=== PATIENT | male | born 1985 | race Caucasian/White ===

== ENCOUNTER 2020-01-28 07:04 | Emergency (ER) | payer MEDICAID ==
--- NOTE | 2020-01-28 07:19 | EDM.PDOC ---
ED HPI GENERAL MEDICAL PROBLEM - General Chief Complaint: Abdominal Pain Stated Complaint: ABDOMINAL PAIN/BLOOD IN URINE/ Time Seen by Provider: 01/28/20 07:19 Source of Information: Reports: Patient History Limitations: Reports: No Limitations - History of Present Illness INITIAL COMMENTS - FREE TEXT/NARRATIVE: 34-year-old male presents to the ED for evaluation after accidentally taking a drink of polar windshield washer fluid by mouth 9 days ago while he was drinking alcohol. He states he never had any problem with vomiting. He was been able to eat normally since that time. He states he has diffuse abdominal pain and noted blood in his urine. Associated dysuria urgency and frequency. No diarrhea. No problems with visual acuity. Not feeling ill at this point time but very concerned that he may have poisoned himself. 1 swig of this fluid which should not have caused any significant abnormalities this long as it was diluted right away. He did phone poison control on Monday and was given that information. Methanol would have caused significant problems with visual acuity and potentially blindness. It can cause some problems of the kidneys and liver and therefore labs will be done today. Cannot account for the dysuria urgency and frequency from this. Nor blood in the urine. Onset: Sudden Onset Date: 01/24/20 Duration: Day(s):, Other (Continue dysuria urgency and frequency which he is worried about is caused by drinking Polar deicer windshield washer fluid accidentally 5 days ago.) Location: Reports: Abdomen Quality: Reports: Other Severity: Moderate (Sleep dysuria urgency frequency with blood noted in his urine.) Improves with: Reports: None Worsens with: Reports: None Context: Denies: Activity, Exercise, Lifting, Sick Contact, Trauma, Other Associated Symptoms: Denies: No Other Symptoms, Confusion, Chest Pain, Cough, cough w sputum, Diaphoresis, Fever/Chills, Headaches, Loss of Appetite, Malaise, Nausea/Vomiting, Rash, Seizure, Shortness of Breath, Syncope, Weakness Treatments B[employer] AND [employer]LL[employer] MACHINE: Reports: Other (see below) (None.) Bilateral Lower Abdomen Pain Score (Numeric/FACES): 3 - Related Data Allergies Allergy/AdvReac Type Severity Reaction Status Date / Time No Known Allergies Allergy Verified 01/28/20 07:17 Home Meds: Home Meds Triamcinolone Acetonide [Triamcinolone Acetonide 0.5% Oint] 30 gm .XX ASDIRECTED #1 tube 01/28/20 [Rx] polyethylene glycoL 3350 [MiraLAX] 17 gm PO DAILY #1 packet 01/28/20 [Rx] Past Medical History Cardiovascular History: Reports: None Respiratory History: Reports: None Gastrointestinal History: Reports: None Genitourinary History: Reports: None Musculoskeletal History: Reports: None Neurological History: Reports: None Psychiatric History: Reports: None Endocrine/Metabolic History: Reports: None Hematologic History: Reports: None Immunologic History: Reports: None Oncologic (Cancer) History: Reports: None Dermatologic History: Reports: Psoriasis - Infectious Disease History Infectious Disease History: Reports: None - Past Surgical History HEENT Surgical History: Reports: Oral Surgery Social & Family History - Tobacco Use Smoking Status *Q: Current Every Day Smoker Years of Tobacco use: 20 Packs/Tins Daily: 0.7 - Caffeine Use Caffeine Use: Reports: Coffee, Energy Drinks, Soda, Tea - Recreational Drug Use Recreational Drug Use: Yes Recreational Drug Type: Reports: Marijuana/Hashish, Methamphetamine - Living Situation & Occupation Living situation: Reports: Single Occupation: Employed ED ROS GENERAL - Review of Systems Review Of Systems: See Below Constitutional: Denies: Fever, Chills, Malaise, Weakness, Fatigue, Decreased Appetite, Weight Loss HEENT: Reports: No Symptoms Respiratory: Reports: No Symptoms Cardiovascular: Reports: No Symptoms Endocrine: Reports: No Symptoms GI/Abdominal: Reports: Abdominal Pain. Denies: Constipation, Diarrhea, Decreased Appetite, Difficulty Swallowing, Distension, Flatus, Hematemesis, Hematochezia, Melena, Mucous in Stool, Nausea, Stool Incontinence, Vomiting : Reports: Dysuria, Frequency, Urgency, Other (Has appreciated hematuria as well.) Musculoskeletal: Denies: Back Pain Skin: Reports: No Symptoms Neurological: Reports: No Symptoms Psychiatric: Reports: No Symptoms Hematologic/Lymphatic: Reports: No Symptoms Immunologic: Reports: No Symptoms ED EXAM, GI/ABD - Physical Exam Exam: See Below Exam Limited By: No Limitations General Appearance: Alert, WD/WN, Anxious Eyes: Bilateral: Normal Appearance Throat/Mouth: Normal Inspection, Normal Lips, Normal Oropharynx, Other Head: Atraumatic, Normocephalic Neck: Normal Inspection (Lung is mildly dry and coated), Supple, Non-Tender, Full Range of Motion. No: Lymphadenopathy (L), Lymphadenopathy (R) Respiratory/Chest: No Respiratory Distress, Lungs Clear, Normal Breath Sounds, No Accessory Muscle Use Cardiovascular: Normal Peripheral Pulses, Regular Rate, Rhythm, No Edema, No Murmur, No Rub GI/Abdominal Exam: Normal Bowel Sounds, Soft, Non-Tender, No Organomegaly, No Abnormal Bruit, No Mass, Pelvis Stable Back Exam: Normal Inspection, Full Range of Motion Extremities: Normal Inspection, Normal Range of Motion, Non-Tender, No Pedal Edema Neurological: Alert, Oriented, CN II-XII Intact, Normal Cognition, No Motor/Sensory Deficits Psychiatric: Anxious Skin Exam: Warm, Dry, Intact, Normal Color, No Rash Course - Vital Signs Last Recorded V/S: Last Vital Signs Temp 36.5 C 01/28/20 07:12 Pulse 79 01/28/20 08:45 Resp 16 01/28/20 07:12 BP 136/61 01/28/20 08:45 Pulse Ox 100 01/28/20 08:45 - Orders/Labs/Meds Labs: Laboratory Tests 01/28/20 01/28/20 01/28/20 Range/Units 07:28 07:28 07:28 WBC (4.23-9.07) K/mm3 RBC (4.63-6.08) M/mm3 Hgb (13.7-17.5) gm/dl Hct (40.1-51.0) % MCV (79.0-92.2) fl MCH (25.7-32.2) pg MCHC (32.2-35.5) g/dl RDW Std Deviation (35.1-43.9) fL Plt Count (163-337) K/mm3 MPV (9.4-12.3) fl Neut % (Auto) (34.0-67.9) % Lymph % (Auto) (21.8-53.1) % [place] % (Auto) (5.3-12.2) % Eos % (Auto) (0.8-7.0) Baso % (Auto) (0.1-1.2) % Neut # (Auto) (1.78-5.38) K/mm3 Lymph # (Auto) (1.32-3.57) K/mm3 [place] # (Auto) (0.30-0.82) K/mm3 Eos # (Auto) (0.04-0.54) K/mm3 Baso # (Auto) (0.01-0.08) K/mm3 PT (9.7-12.0) SECONDS INR APTT (22-31) SECONDS Sodium (136-145) mEq/L Potassium (3.5-5.1) mEq/L Chloride (98-107) mEq/L Carbon Dioxide (21-32) mEq/L Anion Gap (5-15) BUN (7-18) mg/dL Creatinine (0.7-1.3) mg/dL Est Cr Clr Drug Dosing mL/min Estimated GFR (MDRD) (>60) mL/min BUN/Creatinine Ratio (14-18) Glucose (74-106) mg/dL Calcium (8.5-10.1) mg/dL Total Bilirubin (0.2-1.0) mg/dL AST (15-37) U/L ALT (16-63) U/L Alkaline Phosphatase (46-116) U/L Total Protein (6.4-8.2) g/dl Albumin (3.4-5.0) g/dl Globulin gm/dL Albumin/Globulin Ratio (1-2) Urine Color Yellow (Yellow) Urine Appearance Cloudy H (Clear) Urine pH 7.5 (5.0-8.0) Ur Specific Roslyn 1.025 (1.005-1.030) Urine Protein 2+ H (Negative) Urine Glucose (UA) Negative (Negative) Urine Ketones Negative (Negative) Urine Occult Blood 2+ H (Negative) Urine Nitrite Negative (Negative) Urine Bilirubin 1+ H (Negative) Urine Urobilinogen 4.0 H (0.2-1.0) Ur Leukocyte Esterase Negative (Negative) Urine RBC Not seen (0-5) /hpf Urine WBC 0-5 (0-5) /hpf Ur Squamous Epith Cells 0-5 (0-5) /hpf Urine Bacteria Not seen (FEW) /hpf Urine Mucus Not seen (FEW) /hpf Urine Opiates Screen Negative (RUCVDC=234) Ur Buprenorphine Scrn Negative (CUTOFF=10) Ur Oxycodone Screen Negative (CBU1IJ=842) Urine Methadone Screen Negative (RZA1JE=820) Ur Propoxyphene Screen Negative (TORPUM=598) Ur Barbiturates Screen Negative (AFQBRZ=127) Ur Tricyclics Screen Negative (CLJTPA=283) Ur Phencyclidine Scrn Negative (CUTOFF=25) Ur Amphetamine Screen Presumptive positive H (ZUWNKA=343) U Methamphetamines Scrn Negative (QRRECA=607) U Benzodiazepines Scrn Negative (YXYEDZ=602) U Cocaine Metab Screen Negative (LQSRZG=150) U Marijuana (THC) Screen Negative (CUTOFF=50) Hepatitis C Antibody (NEGATIVE) C trachomatis DNA (PCR) Not detected N gonorrhoeae DNA (PCR) Not detected 01/28/20 01/28/20 01/28/20 Range/Units 07:43 07:43 07:43 WBC 8.01 (4.23-9.07) K/mm3 RBC 5.22 (4.63-6.08) M/mm3 Hgb 15.6 (13.7-17.5) gm/dl Hct 48.0 (40.1-51.0) % MCV 92.0 (79.0-92.2) fl MCH 29.9 (25.7-32.2) pg MCHC 32.5 (32.2-35.5) g/dl RDW Std Deviation 41.9 (35.1-43.9) fL Plt Count 291 (163-337) K/mm3 MPV 10.0 (9.4-12.3) fl Neut % (Auto) 74.5 H (34.0-67.9) % Lymph % (Auto) 15.5 L (21.8-53.1) % [place] % (Auto) 8.5 (5.3-12.2) % Eos % (Auto) 1.1 (0.8-7.0) Baso % (Auto) 0.2 (0.1-1.2) % Neut # (Auto) 5.96 H (1.78-5.38) K/mm3 Lymph # (Auto) 1.24 L (1.32-3.57) K/mm3 [place] # (Auto) 0.68 (0.30-0.82) K/mm3 Eos # (Auto) 0.09 (0.04-0.54) K/mm3 Baso # (Auto) 0.02 (0.01-0.08) K/mm3 PT 11.4 (9.7-12.0) SECONDS INR 1.05 APTT 30 (22-31) SECONDS Sodium 141 (136-145) mEq/L Potassium 3.8 (3.5-5.1) mEq/L Chloride 105 (98-107) mEq/L Carbon Dioxide 28 (21-32) mEq/L Anion Gap 11.8 (5-15) BUN 16 (7-18) mg/dL Creatinine 1.3 (0.7-1.3) mg/dL Est Cr Clr Drug Dosing 82.19 mL/min Estimated GFR (MDRD) > 60 (>60) mL/min BUN/Creatinine Ratio 12.3 L (14-18) Glucose 97 (74-106) mg/dL Calcium 8.6 (8.5-10.1) mg/dL Total Bilirubin 0.4 (0.2-1.0) mg/dL AST 28 (15-37) U/L ALT 88 H (16-63) U/L Alkaline Phosphatase 74 (46-116) U/L Total Protein 6.9 (6.4-8.2) g/dl Albumin 3.6 (3.4-5.0) g/dl Globulin 3.3 gm/dL Albumin/Globulin Ratio 1.1 (1-2) Urine Color (Yellow) Urine Appearance (Clear) Urine pH (5.0-8.0) Ur Specific Roslyn (1.005-1.030) Urine Protein (Negative) Urine Glucose (UA) (Negative) Urine Ketones (Negative) Urine Occult Blood (Negative) Urine Nitrite (Negative) Urine Bilirubin (Negative) Urine Urobilinogen (0.2-1.0) Ur Leukocyte Esterase (Negative) Urine RBC (0-5) /hpf Urine WBC (0-5) /hpf Ur Squamous Epith Cells (0-5) /hpf Urine Bacteria (FEW) /hpf Urine Mucus (FEW) /hpf Urine Opiates Screen (IAZPIS=723) Ur Buprenorphine Scrn (CUTOFF=10) Ur Oxycodone Screen (XPH6QG=315) Urine Methadone Screen (WWI9QK=451) Ur Propoxyphene Screen (XWXHQG=847) Ur Barbiturates Screen (LHMEKX=005) Ur Tricyclics Screen (AMALFF=837) Ur Phencyclidine Scrn (CUTOFF=25) Ur Amphetamine Screen (QHHWYF=503) U Methamphetamines Scrn (YOGXVS=753) U Benzodiazepines Scrn (FKLLYP=001) U Cocaine Metab Screen (GIMRMK=001) U Marijuana (THC) Screen (CUTOFF=50) Hepatitis C Antibody (NEGATIVE) C trachomatis DNA (PCR) N gonorrhoeae DNA (PCR) 01/28/20 Range/Units 07:43 WBC (4.23-9.07) K/mm3 RBC (4.63-6.08) M/mm3 Hgb (13.7-17.5) gm/dl Hct (40.1-51.0) % MCV (79.0-92.2) fl MCH (25.7-32.2) pg MCHC (32.2-35.5) g/dl RDW Std Deviation (35.1-43.9) fL Plt Count (163-337) K/mm3 MPV (9.4-12.3) fl Neut % (Auto) (34.0-67.9) % Lymph % (Auto) (21.8-53.1) % [place] % (Auto) (5.3-12.2) % Eos % (Auto) (0.8-7.0) Baso % (Auto) (0.1-1.2) % Neut # (Auto) (1.78-5.38) K/mm3 Lymph # (Auto) (1.32-3.57) K/mm3 [place] # (Auto) (0.30-0.82) K/mm3 Eos # (Auto) (0.04-0.54) K/mm3 Baso # (Auto) (0.01-0.08) K/mm3 PT (9.7-12.0) SECONDS INR APTT (22-31) SECONDS Sodium (136-145) mEq/L Potassium (3.5-5.1) mEq/L Chloride (98-107) mEq/L Carbon Dioxide (21-32) mEq/L Anion Gap (5-15) BUN (7-18) mg/dL Creatinine (0.7-1.3) mg/dL Est Cr Clr Drug Dosing mL/min Estimated GFR (MDRD) (>60) mL/min BUN/Creatinine Ratio (14-18) Glucose (74-106) mg/dL Calcium (8.5-10.1) mg/dL Total Bilirubin (0.2-1.0) mg/dL AST (15-37) U/L ALT (16-63) U/L Alkaline Phosphatase (46-116) U/L Total Protein (6.4-8.2) g/dl Albumin (3.4-5.0) g/dl Globulin gm/dL Albumin/Globulin Ratio (1-2) Urine Color (Yellow) Urine Appearance (Clear) Urine pH (5.0-8.0) Ur Specific [place] (1.005-1.030) Urine Protein (Negative) Urine Glucose (UA) (Negative) Urine Ketones (Negative) Urine Occult Blood (Negative) Urine Nitrite (Negative) Urine Bilirubin (Negative) Urine Urobilinogen (0.2-1.0) Ur Leukocyte Esterase (Negative) Urine RBC (0-5) /hpf Urine WBC (0-5) /hpf Ur Squamous Epith Cells (0-5) /hpf Urine Bacteria (FEW) /hpf Urine Mucus (FEW) /hpf Urine Opiates Screen (DNFJXX=269) Ur Buprenorphine Scrn (CUTOFF=10) Ur Oxycodone Screen (TXM1HO=708) Urine Methadone Screen (FSH3MW=044) Ur Propoxyphene Screen (MAXMHU=373) Ur Barbiturates Screen (RCSONJ=031) Ur Tricyclics Screen (KQVMAF=135) Ur Phencyclidine Scrn (CUTOFF=25) Ur Amphetamine Screen (LJNHUE=721) U Methamphetamines Scrn (JOGDUZ=172) U Benzodiazepines Scrn (CIYEVC=159) U Cocaine Metab Screen (IRBBSC=685) U Marijuana (THC) Screen (CUTOFF=50) Hepatitis C Antibody Positive H (NEGATIVE) C trachomatis DNA (PCR) N gonorrhoeae DNA (PCR) Meds: Medications Discontinued Medications Generic Name Dose Route Start Last Admin Trade Name Freq PRN Reason Stop Dose Admin Dextrose/Sodium Chloride 1,000 mls @ 999 mls/hr 01/28/20 07:30 01/28/20 07:53 Dextrose 5%-Normal Saline IV 999 mls/hr ASDIRECTED AURELIA Administration - Radiology Interpretation Free Text/Narrative:: 34-year-old male presents to the ED for evaluation of diffuse abdominal pain associate with dysuria urgency frequency and hematuria. Patient states he actually and drank a swig of color deicer windshield washer fluid 5 days ago while drinking alcohol. It had been accidentally placed in a Mountain Dew bottle. He should have had symptoms within the first 12 to 24 hours with nausea vomiting due to GI irritation and this did not seem to occur. Appears that he drink enough other fluids that he diluted it. I cannot explain the dysuria urgency frequency or hematuria that he claims that he has. Plan routine labs including liver function studies and urinalysis is also tested for gonorrhea and chlamydia. Urine drug screen as well. IV will be D5 normal saline at open. I do not anticipate any problems from drinking the methanol as it should have occurred within the first 12 to 24 hours. The patient is just anxious about this. - Re-Assessments/Exams Free Text/Narrative Re-Assessment/Exam: 01/28/20 08:14 Hematology reveals a normal white count at 8.01. Neutrophils are 74.5% on the auto differential. Hemoglobin is 15.6 with hematocrit of 48.0 suggesting mild hemoconcentration. Platelet count is 291,000. PT is 11.4 with an INR of 1.05. PTT is 30. Urinalysis is cloudy and contains 2+ proteinuria 2+ occult blood 1+ bilirubin 4+ urobilinogen. Leukocyte esterase negative. No bacteria seen no white cells or red cells. Urine drug screen is presumptive positive for amphetamines. KUB reveals increased stool throughout the right hemicolon portions of the transverse colon and most of the descending colon as well as in the rectal vault combined with moderate constipation. 01/28/20 08:24 Chemistry has returned. Sodium 141 with a potassium of 3.8. Chloride 105 with a bicarb of 28. Anion gap is 11.8. BUN is 16 with a creatinine of 1.3. Glucose is 97 with a calcium of 8.6. Bilirubin is 0.4 with an AST of 28 ALT is 88. Alk phosphatase is 74 total protein is 6.9. Beman fraction is 3.6. 01/28/20 08:4 Discusssed the results of the blood test with the patient. He still is confident that he still seeing blood in the urine at the end of voiding. There is some also blood noted in the semen or hematospermia which is of no consequence. Call him with results of the gonorrhea chlamydia test. Advised MiraLAX powder 17 g once daily or Senokot S tablets twice daily to help provide bowel cleanse. 01/28/20 09:09 At the time of discharge from the department the patient is requesting a hepatitis C antibody screen which will be performed. He does have an elevated ALT. Phone number he gave me was [phone]. 01/28/20 09:41 patient's testing for gonorrhea and Chlamydia are negative. 01/28/20 10:26 otitis C antibody came back positive. He will now have a quantitative testing done on the hepatitis C titer and type to see whether or not he would need or be a candidate for hep C treatment. Departure - Departure Time of Disposition: 08:48 Disposition: Home, Self-Care 01 Condition: Fair Clinical Impression: Constipation by delayed colonic transit, Hepatitis C antibody test positive Abdominal pain Qualifiers: Abdominal location: lower abdomen, unspecified Qualified Code(s): R10.30 - Lower abdominal pain, unspecified - Discharge Information *PRESCRIPTION DRUG MONITORING PROGRAM REVIEWED*: Not Applicable *COPY OF PRESCRIPTION DRUG MONITORING REPORT IN PATIENT BALTAZAR: Not Applicable Prescriptions: polyethylene glycoL 3350 [MiraLAX] 17 gm PO DAILY #1 packet Triamcinolone Acetonide [Triamcinolone Acetonide 0.5% Oint] 30 gm .XX ASDIRECTED #1 tube Instructions: Constipation, Adult Referrals: PCP,Not In Area [Primary Care Provider] - Forms: ED Department Discharge Additional Instructions: Evaluation in the emergency room today in regards to the blood in the stool with diffuse lower abdominal pain. An accidental ingestion of a swig of methanol 5 days ago with concerns about long-term effects. The methanol for the most part is metabolized by the liver similar to ethanol or alcohol that you drink. It usually would cause significant symptoms of kidney failure and blindness within the first 12 hours of ingestion if you ingested a large amount. Lab test done today revealed no signs of any liver or kidney damage. Urinalysis also did not show any red blood cells. It does show some signs of urobilinogen which is orange juice in color which is from the liver. This appears to be secondary to alcohol use. Urine drug screen was positive for amphetamines. X-ray of the abdomen shows increased stool throughout most of the colon compatible with constipation which is likely creating intermittent lower abdominal pain especially after eating. Suggest purchasing some MiraLAX powder and taking 17 g or 1 scoop daily with any type of fluid. It takes 2 or 3 days to work but it will provide bowel cleanse. Suggest taking it daily for about a week. Increase fluid intake such as water, Gatorade etc. I did write a prescription for triamcinolone cream for your psoriasis that she can use twice daily as needed. I will call you with the results of the chlamydia and gonorrhea test once they become available later today. This is because you were complaining of some burning with urination. Sepsis Event Note (ED) - Evaluation Sepsis Screening Result: No Definite Risk - Focused Exam Vital Signs: Vital Signs Temp Pulse Resp BP Pulse Ox 01/28/20 08:45 79 136/61 100 01/28/20 07:12 36.5 C 93 16 146/95 H 100
[2020-01-28] MEDS ORDERED: Dextrose 5%-0.9% NaCl 1,000 ML IV SCH (07:30)
--- NOTE | 2020-01-28 08:09 | CR ---
Abdomen: Supine view of the abdomen was obtained. Slight increased stool within the colon. Bowel gas pattern is otherwise unremarkable. Calcifications are seen within the left side of the pelvis compatible with phleboliths. No soft tissue abnormality is seen. Bony structures are within normal limits. Impression: 1. Mild increased stool within the colon. 2. Nothing acute is seen on supine abdominal x-ray. Diagnostic code #2 This report was dictated in MDT
[2020-01-28 09:40] LABS: C. TRACHOMATIS BY PCR NOT DETECTED; N. GONORRHOEAE BY PCR NOT DETECTED
== END 2020-01-28 09:02 | disposition home or self-care (01) ==
LOC: JD.ED 07:04
DX: K59.01 Slow transit constipation (principal); B19.20 Unspecified viral hepatitis C without hepatic coma; F17.210 Nicotine dependence, cigarettes, uncomplicated
CPT/HCPCS: 36415; 74018; 80053; 80306; 81001; 85025; 85610; 85730; 86803; 87491; 87522; 87591; 99284; J7042; 99283

== ENCOUNTER 2024-05-23 04:25 | Emergency (ER) | payer MEDICAID ==
[2024-05-23] MEDS: OLANZapine 5 MG Tab PO ONE (05:44)
== END 2024-05-23 06:00 | disposition left against medical advice (07) ==
LOC: JD.ED 04:25
DX: F29 Unspecified psychosis not due to a substance or known physiological condition (principal); F17.210 Nicotine dependence, cigarettes, uncomplicated; Z79.899 Other long term (current) drug therapy
CPT/HCPCS: 99284; 99285; A9270-GY